=== PATIENT | male | born 1965 | race Caucasian/White ===

== ENCOUNTER → 2017-08-31 | Outpatient (CLI) | payer BC ==
--- NOTE | 2017-08-31 18:48 | Diagnostic Imaging Report ---
PROCEDURE:TESTICULAR ULTRASOUND COMPARISON:None. INDICATIONS:Scrotal varices. Hydrocele. TECHNIQUE: Chadwick-scale and color Doppler images of the testicles and scrotal contents were obtained. Duplex imaging with spectral waveform analysis was performed of the testicular arteries and veins. FINDINGS: RIGHT SCROTUM: Testicle: 3.9 x 3.2 x 3.6 cm. Homogeneous without mass. Normal color Doppler flow and normal arterial and venous spectral Doppler waveforms. Epididymal head: 0.9 x 1.1 x 1.5 cm. No increased vascularity. Anechoic 0.6 x 0.6 x 0.7 cm lesion appears separate from the epididymis and likely represents a cystic epididymal appendage. Hydrocele: Large. Few septations noted within the inferior aspect. Varicocele: None LEFT SCROTUM: Testicle: 5 x 2.1 x 3.3 cm. Mildly heterogeneous without focal mass which may be senescent related change or reflect sequela of prior infection/inflammation. Normal color Doppler flow and normal arterial and venous spectral Doppler waveforms. Epididymal head: 1.2 x 1 x 0.5 cm. No increased vascularity. Hydrocele: Small Varicocele: Small Additional findings: Fat containing bulge in the left inguinal region noted on Valsalva likely represents a fat containing inguinal hernia. CONCLUSION: 1. Large right hydrocele. 2. Small left varicocele. 3. Reducible small fat-containing left inguinal hernia. Dictated by: Kei Key M.D. on 08/31/2017 at 18:57 Electronically approved by: Kei Key M.D. on 08/31/2017 at 18:57
--- NOTE | 2017-08-31 18:49 | Diagnostic Imaging Report ---
PROCEDURE:TESTICULAR DOPPLER ULTRASOUND COMPARISON:None. INDICATIONS:Not provided. TECHNIQUE:The scrotum was evaluated with haque scale and color duplex Doppler sonography. FINDINGS: See same day testicular ultrasound for full report. CONCLUSION: See same day testicular ultrasound for full report. Dictated by: Kei Key M.D. on 08/31/2017 at 18:58 Electronically approved by: Kei Key M.D. on 08/31/2017 at 18:58
== END ==
LOC: US 16:44
PROVIDERS: ATTEND Urology
DX: I86.1 Scrotal varices (principal); N43.3 Hydrocele, unspecified
CPT/HCPCS: 76870; 93976

== ENCOUNTER → 2018-03-20 | Outpatient (CLI) | payer BC ==
--- NOTE | 2018-03-20 23:26 | Diagnostic Imaging Report ---
EXAMINATION: Scrotal ultrasound CLINICAL INDICATION: Hydrocele, right testicular pain, scrotal varices. COMPARISON: Testicular ultrasound 08/31/2017. TECHNIQUE: Grayscale and color Doppler evaluation of the scrotum was performed in transverse and longitudinal planes. FINDINGS: The right testicle measures 5.4 x 1.9 x 4.3 cm. Normal echogenicity. Normal vascularity. There are no masses or calcifications.. The right epididymis measures 1.4 x 1.5 x 0.8 cm. Normal echogenicity. Normal vascularity. Stable 0.5 x 0.3 x 0.5 cm cystic, anechoic lesion in the right epididymal head.. Interval resolution of previously visualized right hydrocele. No varicocele is identified.. There is normal arterial and venous flow to the right testicle, without evidence of torsion. The left testicle measures 3.2 x 2.2 x 5.4 cm.Normal echogenicity. Normal vascularity. There are no masses or calcifications.. The left epididymis measures 0.8 x 0.2 x 0.3 cm. Normal echogenicity. Normal vascularity.No focal lesions.. There is no evidence of left hydrocele. A left varicocele is identified. There is normal arterial and venous flow to the left testicle without evidence of torsion. The scrotum has a normal appearance, without focal lesions. No evidence of inguinal hernia or adenopathy.. Impression: 1. Interval resolution of previously visualized right hydrocele. 2. Stable left varicocele. 3. Normal bilateral testicular size and echogenicity. No focal lesions. Normal bilateral arterial and venous flow, with low likelihood of torsion. 4. Stable 0.5 cm right epididymal head cyst versus spermatocele. Signed by: Dr. Tyshawn Morocho M.D. on 03/20/2018 11:23 PM
== END ==
LOC: US 16:55
PROVIDERS: ATTEND Urology
DX: N43.3 Hydrocele, unspecified (principal); I86.1 Scrotal varices
CPT/HCPCS: 76870; 93976

== ENCOUNTER → 2019-12-13 | Outpatient (CLI) | payer BC ==
--- NOTE | 2019-12-13 08:41 | Diagnostic Imaging Report ---
EXAM: CT Abdomen and Pelvis WITHOUT intravenous contrast INDICATION: Flank pain, hematuria COMPARISON: None. TECHNIQUE: Abdomen and pelvis were scanned utilizing a multidetector helical scanner from the lung base to the pubic symphysis without administration of IV contrast. Coronal and sagittal reformations were obtained. IV CONTRAST: None ORAL CONTRAST: None COMPLICATIONS: None RADIATION DOSE: Total DLP: 270 mGy*cm Dose modulation, iterative reconstruction, and/or weight based adjustment of the mA/kV was utilized to reduce the radiation dose to as low as reasonably achievable. FINDINGS: LOWER THORAX: Normal. HEPATOBILIARY: No focal liver lesion. Unremarkable gallbladder. SPLEEN: No splenomegaly. PANCREAS: No focal masses or ductal dilatation. ADRENALS: No adrenal nodules. KIDNEYS/URETERS: 4 mm left proximal ureteral calculus with resulting moderate left hydroureteronephrosis. No additional urinary calculi identified. No right hydronephrosis or hydroureter. PELVIC ORGANS/BLADDER: Unremarkable. PERITONEUM / RETROPERITONEUM: No free air or fluid. LYMPH NODES: No lymphadenopathy. VESSELS: Unremarkable. GI TRACT: No abnormal bowel thickening. No bowel obstruction. BONES AND SOFT TISSUES: No acute osseous injury. No suspicious lytic or blastic lesions. IMPRESSION: 4 mm left proximal ureteral calculus with moderate left hydroureteronephrosis. No additional urinary calculi identified. No right hydronephrosis or hydroureter. Signed by: Matthew Beasley MD on 12/13/2019 8:38 AM
== END ==
LOC: CT 07:32
PROVIDERS: ATTEND Urology
DX: R31.21 Asymptomatic microscopic hematuria (principal); N13.2 Hydronephrosis with renal and ureteral calculous obstruction
CPT/HCPCS: 74176

== ENCOUNTER 2020-02-09 12:11 | Emergency (ER) | payer BC ==
[~2020-02-09] VITALS: Ht 175.3 cm; Wt 83.9 kg
[2020-02-09] MEDS ORDERED: LEVOFLOXACIN 500 MG TAB PO NR (14:30)
[2020-02-09] MEDS ORDERED: CEFTRIAXONE SOD 500 MG VIAL IM NR (14:30)
[2020-02-09 14:47] LABS: CLARITY,URINE SL CLOUDY (CLEAR); COLOR,URINE YELLOW (YELLOW)
[2020-02-09 14:48] LABS: LEUKOCYTE ESTERASE ,URINE SMALL (NEGATIVE); NITRITE,URINE POSITIVE (NEGATIVE)
[2020-02-09 14:49] LABS: BILIRUBIN,URINE NEGATIVE (NEGATIVE); KETONES,URINE NEGATIVE (NEGATIVE); PROTEIN,URINE DIPSTICK 2+ (NEGATIVE); URINE UROBILINOGEN 0.2 mg/dL (0.2 - 1)
[2020-02-09] MEDS ORDERED: LEVOFLOXACIN 250 MG TAB ONE (14:50)
[2020-02-09 14:51] LABS: RBC,URINE >50 /HPF (0-5); WBC,URINE (MAN) >50 /HPF (0-5)
[2020-02-09 14:52] LABS: BACTERIA,URINE MODERATE /HPF
[2020-02-09 14:54] LABS: EPITHELIAL CELLS,URINE FEW /LPF
[2020-02-09 14:55] LABS: MUCUS,URINE FEW (RARE)
--- NOTE | 2020-02-09 15:33 | Diagnostic Imaging Report ---
EXAM: Abdomen Radiograph INDICATION: LEFT URETERAL STENT COMPARISON: CT abdomen and pelvis dated 12/13/2019 FINDINGS: TUBES and LINES: Left nephroureteral stent in place and intact. Clips are seen overlying the left pelvis LOWER CHEST: No abnormalities in the lower chest. ABDOMEN: The bowel loops are unremarkable with no dilatation or signs of obstruction. Normal volume of stool in the colon. No pneumoperitoneum. No abnormal abdominal calcifications. The previously seen 4 mm left proximal ureteral calculus is not seen on this exam. BONES AND SOFT TISSUES: No acute osseous lesion. Soft tissues are unremarkable. IMPRESSION: No acute abdominal radiographic abnormality. Signed by: El Anaya MD on 02/09/2020 3:30 PM
--- NOTE | 2020-02-09 15:57 | Emergency Department Note ---
History of Present Illnes History of Present Illness Chief Complaint: Genitourinary History of Present Illness This is a 54 year old male states he had stent placed in left kidney 6 weeks ago supposed to be after 1 month but due to scheduling issues not able to be removed until sept c/o right testicular pain to touch very sensitive c/o painful urination takes azo for it and c/o chronic hematuria called dr abad and told to come into er for further. Historian: Patient Arrival Mode: [employer] Supervisor Required: No Onset (how long ago): hour(s) Location: right testicle Quality: pain Radiation: Reports non-radiation Severity: severe Onset quality: sudden Timing of current episode: constant Progression: unchanged Chronicity: new Context: Denies recent illness Relieving factors: none Exacerbating factors: none Associated symptoms: Reports denies other symptoms Treatments prior to arrival: none Past Medical/Family History Physician Review I have reviewed the patient's past medical and family history. Any updates have been documented here. Past Medical History Recent Fever: No Clinical Suspicion of Infectio: No New/Unexplained Change in Ment: No Other Medical History: enlarged prostate Past Surgical History: Appendectomy Other Surgery: stent in left kidney hydrocele inguinal hernia Social History Smoking Cessation: Never Smoker Counseling Performed: No Alcohol Use: None Any Illegal Drug Use: No Physically hurt or threatened: No Other Any Pre-Existing Lines (PICC,: No Review of Systems Review of Systems Constitutional: Reports no symptoms EENTM: Reports no symptoms Cardiovascular: Reports no symptoms Respiratory: Reports no symptoms Gastrointestinal: Reports no symptoms Genitourinary: Reports as per HPI Musculoskeletal: Reports no symptoms Integumentary: Reports no symptoms Neurological: Reports no symptoms Psychological: Reports no symptoms Endocrine: Reports no symptoms Hematological/Lymphatic: Reports no symptoms Physical Exam Related Data Allergies: Coded Allergies: Penicillins (Verified Allergy, Unknown, 02/09/20) Triage Vital Signs Vital Signs Date Time Temp Pulse Resp B/P (MAP) Pulse Ox O2 Delivery O2 Flow Rate FiO2 02/09/20 12:35 99.6 87 18 123/81 98 Room Air Vital signs reviewed: Yes Physical Exam CONSTITUTIONAL Constitutional: Present well-developed, Present well-nourished HENT HENT: Present normocephalic, Present atraumatic, Present oropharynx clear/moist, Present nose normal HENT L/R: Present left ext ear normal, Present right ext ear normal EYES Eyes: Reports PERRL, Reports conjunctivae normal NECK Neck: Present ROM normal PULMONARY Pulmonary: Present effort normal, Present breath sounds normal CARDIOVASCULAR Cardiovascular: Present regular rhythm, Present heart sounds normal, Present capillary refill normal, Present normal rate GASTROINTESTINAL Abdominal: Present soft, Present nontender, Present bowel sounds normal; Absent left CVA tenderness, Absent right CVA tenderness GENITOURINARY Genitourinary: Present other (no testicular tenderness, right epididymis very tender to touch, no penile ds/c) SKIN Skin: Present warm, Present dry MUSCULOSKELETAL Musculoskeletal: Present ROM normal NEUROLOGICAL Neurological: Present alert, Present oriented x 3, Present no gross motor or sensory deficits PSYCHOLOGICAL Psychological: Present mood/affect normal, Present judgement normal Results Laboratory Laboratory Laboratory Tests Test 02/09/20 12:42 Urine Color Yellow (YELLOW) Urine Clarity Sl cloudy (CLEAR) Urine pH 5.5 (5 - 7) Urine Specific [place] 1.015 (1.010-1.025) Urine Protein 2+ (NEGATIVE) Urine Glucose (UA) Negative (NEGATIVE) Urine Ketones Negative (NEGATIVE) Urine Blood Large (NEGATIVE) Urine Nitrite Positive (NEGATIVE) Urine Bilirubin Negative (NEGATIVE) Urine Urobilinogen 0.2 mg/dL (0.2 - 1) Urine Leukocyte Esterase Small (NEGATIVE) Urine RBC >50 /HPF (0-5) Urine WBC >50 /HPF (0-5) Urine Epithelial Cells Few /LPF (NONE) Urine Bacteria Moderate /HPF (NONE) Urine Mucus Few (RARE) Lab results reviewed: Yes Imaging Imaging results reviewed: Yes Impressions EXAM: Abdomen Radiograph INDICATION: LEFT URETERAL STENT COMPARISON: CT abdomen and pelvis dated 12/13/2019 FINDINGS: TUBES and LINES: Left nephroureteral stent in place and intact. Clips are seen overlying the left pelvis LOWER CHEST: No abnormalities in the lower chest. ABDOMEN: The bowel loops are unremarkable with no dilatation or signs of obstruction. Normal volume of stool in the colon. No pneumoperitoneum. No abnormal abdominal calcifications. The previously seen 4 mm left proximal ureteral calculus is not seen on this exam. BONES AND SOFT TISSUES: No acute osseous lesion. Soft tissues are unremarkable. IMPRESSION: No acute abdominal radiographic abnormality. Signed by: El Anaya MD on 02/09/2020 3:30 PM Assessment & Plan Medical Decision Making MDM epididymitis by exam - check ua/cx and kub to check stent placement. I spoke with Dr Abad who agrees with plan and DC home on Abx's Reassessment Reassessment DC with [facility] #3 UD for pain, OTC Ibuprofen, F/U Dr Patton Tuesday Assessment & Plan Final Impression: (1) Epididymitis (2) UTI (urinary tract infection) Depart Disposition: HOME, SELF-CARE Last Vital Signs Date Time Temp Pulse Resp B/P (MAP) Pulse Ox O2 Delivery O2 Flow Rate FiO2 02/09/20 12:35 99.6 87 18 123/81 98 Room Air Medications in the ED Levofloxacin 750 mg ONCE PO Last administered on 02/09/20at 14:58; Admin Dose 750 MG; Start 02/09/20 at 14:30; Stop 02/09/20 at 15:59 Ceftriaxone Sodium 1,000 mg ONCE IM Last administered on 02/09/20at 14:58; Admin Dose 1,000 MG; Start 02/09/20 at 14:30; Stop 02/09/20 at 15:59 Levofloxacin 250 mg STK-MED ONCE .ROUTE ; Start 02/09/20 at 14:50; Stop 02/09/20 at 14:44; Status DC BRENDA ARGUETA MD Feb 09, 2020 15:57
== END 2020-02-09 15:55 | disposition home or self-care (01) ==
LOC: ER 12:47
DX: N45.1 Epididymitis (principal); N39.0 Urinary tract infection, site not specified; R31.9 Hematuria, unspecified
CPT/HCPCS: 74018; 81001; 87086; 99283; J0696

== ENCOUNTER 2022-08-14 09:28 | Emergency (ER) | payer BC ==
[~2022-08-14] VITALS: Ht 175.3 cm; Wt 83.9 kg
[2022-08-14] MEDS ORDERED: SODIUM CHLORIDE 0.9% 1000ML 1,000 ML IV SCH (10:00)
[2022-08-14 10:21] LABS: BASOPHILS % 0.3 % (0.0-1.0); HEMATOCRIT 41.5 % (38.2-49.6); HEMOGLOBIN 13.5 g/dL (14.0-18.0); LYMPHOCYTES # (AUTO) 0.5 (1.0-3.2); LYMPHOCYTES % 5.7 % (18.0-39.1); MEAN CORPUSCULAR HGB CONC 32.5 g/dL (31-35); MEAN CORPUSCULAR VOLUME 89.1 fL (81-99); MONOCYTES # (AUTO) 0.4 (0.2-0.8); MONOCYTES % 5.1 % (4.4-11.3); NEUTROPHILS # (AUTO) 7.6 (2.1-6.9); NEUTROPHILS % 88.3 % (38.7-80.0); PLATELET COUNT 119 x10e3/uL (140-360); RED BLOOD COUNT 4.66 x10e6/uL (4.3-5.7); RED CELL DISTRIBUTION WIDTH 12.3 % (11.7-14.4)
[2022-08-14 10:43] LABS: CLARITY,URINE CLEAR (CLEAR); COLOR,URINE ORANGE (YELLOW)
[2022-08-14 10:44] LABS: KETONES,URINE 2+ (NEGATIVE); LEUKOCYTE ESTERASE ,URINE LARGE (NEGATIVE); NITRITE,URINE POSITIVE (NEGATIVE); PROTEIN,URINE DIPSTICK >=300 (NEGATIVE); URINE UROBILINOGEN 4 mg/dL (0.2 - 1)
[2022-08-14 10:49] LABS: RBC,URINE 0-5 /HPF (0-5)
[2022-08-14 10:50] LABS: BACTERIA,URINE MODERATE /HPF; EPITHELIAL CELLS,URINE RARE /LPF
[2022-08-14 10:51] LABS: ALBUMIN 3.1 g/dL (3.5-5.0); ALBUMIN/GLOBULIN RATIO 1.1 (0.8-2.0); ANION GAP 16.4 mmol/L (8-16); CALCIUM 8.1 mg/dL (8.4-10.2); CREATININE, SERUM 1.02 mg/dL (0.72-1.25); POTASSIUM 3.4 mmol/L (3.5-5.1)
[2022-08-14] MEDS ORDERED: CEFDINIR300 MG PO (11:53)
[2022-08-14] MEDS ORDERED: DOXYCYCLINE HY100 MG PO (11:53)
== END 2022-08-14 12:12 | disposition home or self-care (01) ==
LOC: ER 09:33
DX: R50.9 Fever, unspecified (principal); J18.9 Pneumonia, unspecified organism; R05.9 Cough, unspecified; R19.7 Diarrhea, unspecified; Z20.822 Contact with and (suspected) exposure to COVID-19
CPT/HCPCS: 36415; 71045; 80053; 81001; 84484; 85025; 87086; 93005; 99284; J7030; U0002

== ENCOUNTER → 2022-09-15 | Outpatient (CLI) | payer BC ==
[~2022-09-15] MED LIST: CEFDINIR300 MG PO; DOXYCYCLINE HY100 MG PO
== END ==
LOC: RAD 15:36
PROVIDERS: ATTEND Urology
DX: N20.0 Calculus of kidney (principal); N23 Unspecified renal colic
CPT/HCPCS: 74018